=== PATIENT | male | born 1985 | race Caucasian/White ===

== ENCOUNTER 2024-01-11 15:15 | Outpatient (RCR) | payer OTHER, MEDICAID, SELFPAY ==
--- NOTE | 2023-12-07 16:51 | PT.OIE ---
Current Diagnoses Pelvic muscle wasting (12/07/23) Unspecified urinary incontinence (12/07/23) Feeling of incomplete bladder emptying (12/07/23) Visit Care Team Role Provider Type Melvin Castle MD Attending Provider Non-Staff Family Provider Primary Care Provider Referring Provider Specialty: Family Practice Address: [address] [place] [address], [id number] Email: Physical Therapy Initial Evaluation PT-OP-A Visit Information Start: 12/07/23 10:29 Freq: Status: Active Protocol: Document 12/07/23 16:15 [facility] (Rec: 12/07/23 16:15 [facility] [id number]) Out-Patient Physical Therapy Visit Information Visit Information Visit Type Initial Evaluation Visit Start Time 10:30 Visit Stop Time 11:15 Visit Number 1 Evaluation Information Evaluation Date 12/07/23 PT-OP-B Current Condition Start: 12/07/23 10:29 Freq: Status: Active Protocol: Document 12/07/23 10:30 [facility] (Rec: 12/07/23 11:17 [facility] [id number]) Current Condition History of Current Condition Onset Date 1 year ago Current Complaints urinary leakage with urgnecy History of Current Condition Baldo reports his symptoms are worse in the AM especially when he stands up out of bed to walk to the bathroom. He notes he will often leak on the way to the bathroom. last year is when it got more acute when it became a daily problem. Baldo reports he was under a lot of stress he had lost his brother and he was experiencing heart flucations and stress. After the first inital empty in the am, Baldo notes he can feel like he has trouble knowing when his bladder is full. He will experience urgency during the day but he has fewer accidents so he will get the urgency but he doesn't always get a warning ahead of time. He goes approx 1.5 hour in between voids. 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 HE has a daily bowel movement and usually goes in the am and often times in the am he feels bloated in the am and nauseated in the am. Then 2-3 hours into his day he is feeling better he mostly drinks water during the day 20 oz water bottle. HE refills 2-3 times. He has coffee occasionally. He does notice that his urine is very concentrated in the am. Guzman eating habits yougart and fresh fruit, creme of wheat, rice and meats and he tries to eat more veggies. He tried to limited his meat intake. He aims to have dinner aound 6 but at times it will be between 6-9. He aims to be in bed by 10 but it can take him a long to fall alseep. He has at times had leakage with coughing and sneezing. He is wearing incontinence underware daily and he has to change at least once per day and sometimes 2-3 times per day. Treatment Goals Patient/Caregiver Goals Pts goals include decreasing urinary leakage and urgency PT-OP-C Subjective Start: 12/07/23 10:29 Freq: Status: Active Protocol: Document 12/07/23 10:30 [facility] (Rec: 12/12/23 16:30 [facility] [id number]) OP-PT Subjective Patient Comments Patient Comments Pt reports he cant get out of bed without worrying about urinary leakage Patient Questionnaires Pelvic Pain and Urgency/Frequency Patient Symptom Scale Pelvic Pain Score 8 PT-OP-F Manual Assessment Start: 12/07/23 10:29 Freq: Status: Active Protocol: Document 12/07/23 10:30 [facility] (Rec: 12/12/23 16:30 [facility] [id number]) Manual Assessments Soft Tissue Assessment Soft Tissue Mobility Assessment tightness of the suprapubic fascia PT-OP-I Pelvic Floor Start: 12/07/23 10:29 Freq: Status: Active Protocol: Document 12/07/23 10:30 [facility] (Rec: 12/12/23 16:30 [facility] [id number]) Pelvic Floor Assessment Urine Pelvic Floor Surgery No Urinary Symptoms Dysuria,Urge Sensation, Hesitancy,Incomplete Emptying Other Urinary Symptoms incomplete bladder emptying urinary incontinence worse in the am urinary urgency Leakage Size Medium Leakage Cause Urge Leaks Per Day 4 Nocturia 2 Urine Pad Type Depends Contraction Ability Voluntary Contraction Weak Voluntary Relaxation Weak Muscle Endurance (Seconds) 3 Comments Pelvic Floor Comments poor endurance holds of the pelvic floor. PT-OP-Q Treatments Start: 12/07/23 10:29 Freq: Status: Active Protocol: Document 12/07/23 10:30 [facility] (Rec: 12/07/23 16:16 [facility] [id number]) Therapeutic Exercises Supine Exercises pelvic floor long holds Reps/Minutes 5 sec hold and 10 second relaxation x 10 reps Self-Care/Home Management Treatment Education Patient Education Home Exercise Program Other Education urge deference technique and bladder retraining PT-OP-T Assessment and Plan Start: 12/07/23 10:29 Freq: Status: Active Protocol: Document 12/07/23 10:30 [facility] (Rec: 12/12/23 16:30 [facility] [id number]) Physical Therapy Assessment Rehab Potential Rehabilitation Potential Excellent Evaluation Complexity Number of Personal Factors/Comorbidities 0 Number of Body Systems Impaired 1-2 Clinical Presentation at Evaluation Stable Impairments Impairments Activity Tolerance,Soft Tissue Mobility,Strength Other Impairments urinary urgency and leakage Goals 3 Impairment nocturia 2 times per night [place] Goal (LTG) Baldo is able to decrease night time voiding to 1xm per night or less LTG Duration 12 weeks 2 Impairment Urinary urge incontinence Short Term Goal (STG) Baldo is able to perform the urge deference technique in the am prior to getting out of bed and he is able to make it to the bathroom without leakage STG Duration 4 weeks Senior Care Goal (LTG) Baldo reports a overall reducation in urinary urge incontinence LTG Duration 12 weeks 1 Impairment decreased endurance of the pelvic floor Short Term Goal (STG) Baldo is able to sustain a pelvic floor contraction in supine x 10 seconds STG Duration 4 weeks Senior Care Goal (LTG) Baldo is able to sustain a pelvic floor contraction in standing x 5-10 seconds LTG Duration 12 weeks Assessment Summary Assessment Baldo is a 38 year old transgender male who is referred for urinary incontinence and incomplete bladder emptying. Baldo describes incontinence as being worse in the am and is leaking 3-4 times per day wetting through the underware. He is wearing a diaper daily for protection. Leakage is increased with changing positions such as sit -stand and is worse first thing in the am when getting out of bed. With evaluation today Baldo was educated on bladder irritants as well as education on bladder irritation with dehydration. He is often feeling bloated in the am and seems to have fewer leakage accidents after his bowel movement. He was educated on adequate hydration for improved bowel movements as well as to decrease urgency of the bladder. Baldo was educated on the urge deference technique today to try prior to getting out of bed in the am. He has difficulty sustaining a pelvic floor contraction for more than a few seconds in supine. He would benefit from pelvic floor endurance training utilizing EMG biofeedback. Baldo is a good candidate for PT. Physical Therapy Plan Frequency and Duration Frequency of Treatment 1x/Week Duration of treatment (weeks) 12 Plan of Care Start Date 12/07/23 Plan of Care End Date 02/29/24 Therapeutic Interventions Therapeutic Interventions Home Exercise Program, Neuromuscular Re-education, Patient/Caregiver Education, Self-Care/Home Management, Therapeutic Exercises Modalities Biofeedback Next Visit Focus/Plan Next Note Type Treatment Note Next Visit Plan Begin EMG biofeedback for pelvic floor endurance training next visit
--- NOTE | 2023-12-21 16:36 | PT.OTN ---
Current Diagnoses Pelvic muscle wasting (12/21/23) Unspecified urinary incontinence (12/21/23) Feeling of incomplete bladder emptying (12/21/23) Physical Therapy Treatment Note PT-OP-A Visit Information Start: 12/07/23 10:29 Freq: Status: Active Protocol: Document 12/21/23 15:47 [facility] (Rec: 12/21/23 16:36 [facility] [id number]) Out-Patient Physical Therapy Visit Information Visit Information Visit Type Treatment Note Visit Start Time 13:35 Visit Stop Time 14:15 Visit Number 2 Evaluation Information Evaluation Date 12/07/23 PT-OP-B Current Condition Start: 12/07/23 10:29 Freq: Status: Active Protocol: Document 12/07/23 10:30 [facility] (Rec: 12/07/23 11:17 [facility] [id number]) Current Condition History of Current Condition Onset Date 1 year ago Current Complaints urinary leakage with urgnecy History of Current Condition Roberto reports his symptoms are worse in the AM especially when he stands up out of bed to walk to the bathroom. He notes he will often leak on the way to the bathroom. last year is when it got more acute when it became a daily problem. Roberto reports he was under a lot of stress he had lost his brother and he was experiencing heart flucations and stress. After the first inital empty in the am, Roberto notes he can feel like he has trouble knowing when his bladder is full. He will experience urgency during the day but he has fewer accidents so he will get the urgency but he doesn't always get a warning ahead of time. He goes approx 1.5 hour in between voids. 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 HE has a daily bowel movement and usually goes in the am and often times in the am he feels bloated in the am and nauseated in the am. Then 2-3 hours into his day he is feeling better he mostly drinks water during the day 20 oz water bottle. HE refills 2-3 times. He has coffee occasionally. He does notice that his urine is very concentrated in the am. Megan eating habits yougart and fresh fruit, creme of wheat, rice and meats and he tries to eat more veggies. He tried to limited his meat intake. He aims to have dinner aound 6 but at times it will be between 6-9. He aims to be in bed by 10 but it can take him a long to fall alseep. He has at times had leakage with coughing and sneezing. He is wearing incontinence underware daily and he has to change at least once per day and sometimes 2-3 times per day. Treatment Goals Patient/Caregiver Goals Pts goals include decreasing urinary leakage and urgency PT-OP-C Subjective Start: 12/07/23 10:29 Freq: Status: Active Protocol: Document 12/21/23 15:47 [facility] (Rec: 12/21/23 16:36 [facility] [id number]) OP-PT Subjective Patient Comments Patient Comments pt notes the quick contraction have helped with urgency, He does note that urgency was worse prior to a bowel movement. HE notes he average is 1.5 hours during the day but can sleep throught the night Patient Reported Progress Improving PT-OP-F Manual Assessment Start: 12/07/23 10:29 Freq: Status: Active Protocol: Document 12/07/23 10:30 [facility] (Rec: 12/12/23 16:30 [facility] [id number]) Manual Assessments Soft Tissue Assessment Soft Tissue Mobility Assessment tightness of the suprapubic fascia PT-OP-I Pelvic Floor Start: 12/07/23 10:29 Freq: Status: Active Protocol: Document 12/07/23 10:30 [facility] (Rec: 12/12/23 16:30 [facility] [id number]) Pelvic Floor Assessment Urine Pelvic Floor Surgery No Urinary Symptoms Dysuria,Urge Sensation, Hesitancy,Incomplete Emptying Other Urinary Symptoms incomplete bladder emptying urinary incontinence worse in the am urinary urgency Leakage Size Medium Leakage Cause Urge Leaks Per Day 4 Nocturia 2 Urine Pad Type Depends Contraction Ability Voluntary Contraction Weak Voluntary Relaxation Weak Muscle Endurance (Seconds) 3 Comments Pelvic Floor Comments poor endurance holds of the pelvic floor. PT-OP-Q Treatments Start: 12/07/23 10:29 Freq: Status: Active Protocol: Document 12/21/23 15:47 [facility] (Rec: 12/21/23 16:36 [facility] [id number]) Therapeutic Exercises Supine Exercises hip ER with theraband Reps/Minutes x 20 reps level 2 TB ball squeeze Reps/Minutes x 10 resting tone Supine Exercise Name 3-6 pelvic floor long holds Supine Exercise Name elevated resting tone Comments 39.7 and max of 70.4 Self-Care/Home Management Treatment Education Patient Education Home Exercise Program Other Education review of bladder diary, HEP was updated and given to Roberto with pictures PT-OP-T Assessment and Plan Start: 12/07/23 10:29 Freq: Status: Active Protocol: Document 12/21/23 15:47 [facility] (Rec: 12/21/23 16:36 [facility] [id number]) Physical Therapy Assessment Assessment Summary Assessment We began working with EMG biofeedback today for pelvic floor assessment. Resting tone was elevated and Roberto has difficulty relaxing the pelvic floor. He does present with strong contraction of the pelvic floor. I worked today on contract relax, adductor contract relax and hip ER with theraband. Roberto was able to reach baseline a few times with relaxation after this. He is doing well with urge deference technique and notes that he has been able to make it to the bathroom this past week using this technique Physical Therapy Plan Frequency and Duration Frequency of Treatment 1x/Week Duration of treatment (weeks) 12 Plan of Care Start Date 12/07/23 Plan of Care End Date 02/29/24 Therapeutic Interventions Therapeutic Interventions Home Exercise Program, Neuromuscular Re-education, Patient/Caregiver Education, Self-Care/Home Management, Therapeutic Exercises Modalities Biofeedback Next Visit Focus/Plan Next Note Type Treatment Note Next Visit Plan assess how Roberto did with his exercises given today and begin MFR surrounding the bladder next visit
--- NOTE | 2023-12-28 16:13 | PT.OTN ---
Current Diagnoses Pelvic muscle wasting (12/28/23) Unspecified urinary incontinence (12/28/23) Feeling of incomplete bladder emptying (12/28/23) Physical Therapy Treatment Note PT-OP-A Visit Information Start: 12/07/23 10:29 Freq: Status: Active Protocol: Document 12/28/23 15:21 [facility] (Rec: 12/28/23 16:13 [facility] [id number]) Out-Patient Physical Therapy Visit Information Visit Information Visit Type Treatment Note PT-OP-B Current Condition Start: 12/07/23 10:29 Freq: Status: Active Protocol: Document 12/07/23 10:30 [facility] (Rec: 12/07/23 11:17 [facility] [id number]) Current Condition History of Current Condition Onset Date 1 year ago Current Complaints urinary leakage with urgnecy History of Current Condition Baldo reports his symptoms are worse in the AM especially when he stands up out of bed to walk to the bathroom. He notes he will often leak on the way to the bathroom. last year is when it got more acute when it became a daily problem. Baldo reports he was under a lot of stress he had lost his brother and he was experiencing heart flucations and stress. After the first inital empty in the am, Baldo notes he can feel like he has trouble knowing when his bladder is full. He will experience urgency during the day but he has fewer accidents so he will get the urgency but he doesn't always get a warning ahead of time. He goes approx 1.5 hour in between voids. 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 HE has a daily bowel movement and usually goes in the am and often times in the am he feels bloated in the am and nauseated in the am. Then 2-3 hours into his day he is feeling better he mostly drinks water during the day 20 oz water bottle. HE refills 2-3 times. He has coffee occasionally. He does notice that his urine is very concentrated in the am. Megan eating habits yougart and fresh fruit, creme of wheat, rice and meats and he tries to eat more veggies. He tried to limited his meat intake. He aims to have dinner aound 6 but at times it will be between 6-9. He aims to be in bed by 10 but it can take him a long to fall alseep. He has at times had leakage with coughing and sneezing. He is wearing incontinence underware daily and he has to change at least once per day and sometimes 2-3 times per day. Treatment Goals Patient/Caregiver Goals Pts goals include decreasing urinary leakage and urgency PT-OP-C Subjective Start: 12/07/23 10:29 Freq: Status: Active Protocol: Document 12/28/23 15:21 [facility] (Rec: 12/28/23 16:13 [facility] [id number]) OP-PT Subjective Patient Comments Patient Comments pt notes he is feeling good and he has had a lot of times where he made it no problem. PT-OP-F Manual Assessment Start: 12/07/23 10:29 Freq: Status: Active Protocol: Document 12/07/23 10:30 [facility] (Rec: 12/12/23 16:30 [facility] [id number]) Manual Assessments Soft Tissue Assessment Soft Tissue Mobility Assessment tightness of the suprapubic fascia PT-OP-I Pelvic Floor Start: 12/07/23 10:29 Freq: Status: Active Protocol: Document 12/07/23 10:30 [facility] (Rec: 12/12/23 16:30 [facility] [id number]) Pelvic Floor Assessment Urine Pelvic Floor Surgery No Urinary Symptoms Dysuria,Urge Sensation, Hesitancy,Incomplete Emptying Other Urinary Symptoms incomplete bladder emptying urinary incontinence worse in the am urinary urgency Leakage Size Medium Leakage Cause Urge Leaks Per Day 4 Nocturia 2 Urine Pad Type Depends Contraction Ability Voluntary Contraction Weak Voluntary Relaxation Weak Muscle Endurance (Seconds) 3 Comments Pelvic Floor Comments poor endurance holds of the pelvic floor. PT-OP-Q Treatments Start: 12/07/23 10:29 Freq: Status: Active Protocol: Document 12/28/23 15:21 [facility] (Rec: 12/28/23 16:13 [facility] [id number]) Therapeutic Exercises Supine Exercises modified squat stretch Reps/Minutes hold 1-2 min piriformis stretch Reps/Minutes hold 1-2 min Comments right side tightner hip ER with theraband Reps/Minutes x 20 reps level 2 TB resting tone Supine Exercise Name 3-4 uv Comments pt went to 0 when thinking about starting the flow of urine pelvic floor long holds Supine Exercise Name able to relax to baseline Comments max of 40 average 22 uv Manual Therapy Treatment Soft Tissue Mobilization fascial release of the suprapubic fascia Body Location suprapubic fascia Mobilization Type Myofascial Release Body Position Supine Comments worked on releasing on either side of the bladder and Baldo was instructed in self fascial release for home PT-OP-T Assessment and Plan Start: 12/07/23 10:29 Freq: Status: Active Protocol: Document 12/28/23 15:21 [facility] (Rec: 12/28/23 16:13 [facility] [id number]) Physical Therapy Assessment Assessment Summary Assessment Baldo was able to fully relax his pelvic floor to resting with EMGbiofeedback today. This was after both pelvic stretches as well as MFR techniques. He is showing good progress Physical Therapy Plan Next Visit Focus/Plan Next Note Type Treatment Note Next Visit Plan review new stretches and continue with Plan of care
--- NOTE | 2024-01-04 16:12 | PT.OTN ---
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) Unspecified urinary incontinence (01/04/24) Feeling of incomplete bladder emptying (01/04/24) Physical Therapy Treatment Note PT-OP-A Visit Information Start: 12/07/23 10:29 Freq: Status: Active Protocol: Document 01/04/24 15:19 [facility] (Rec: 01/04/24 16:11 [facility] [id number]) Out-Patient Physical Therapy Visit Information Visit Information Visit Type Treatment Note Visit Start Time 15:15 Visit Stop Time 16:00 Visit Number 4 PT-OP-B Current Condition Start: 12/07/23 10:29 Freq: Status: Active Protocol: Document 12/07/23 10:30 [facility] (Rec: 12/07/23 11:17 [facility] [id number]) Current Condition History of Current Condition Onset Date 1 year ago Current Complaints urinary leakage with urgnecy History of Current Condition Cristiano reports his symptoms are worse in the AM especially when he stands up out of bed to walk to the bathroom. He notes he will often leak on the way to the bathroom. last year is when it got more acute when it became a daily problem. Cristiano reports he was under a lot of stress he had lost his brother and he was experiencing heart flucations and stress. After the first inital empty in the am, Cristiano notes he can feel like he has trouble knowing when his bladder is full. He will experience urgency during the day but he has fewer accidents so he will get the urgency but he doesn't always get a warning ahead of time. He goes approx 1.5 hour in between voids. 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 HE has a daily bowel movement and usually goes in the am and often times in the am he feels bloated in the am and nauseated in the am. Then 2-3 hours into his day he is feeling better he mostly drinks water during the day 20 oz water bottle. HE refills 2-3 times. He has coffee occasionally. He does notice that his urine is very concentrated in the am. Megan eating habits yougart and fresh fruit, creme of wheat, rice and meats and he tries to eat more veggies. He tried to limited his meat intake. He aims to have dinner aound 6 but at times it will be between 6-9. He aims to be in bed by 10 but it can take him a long to fall alseep. He has at times had leakage with coughing and sneezing. He is wearing incontinence underware daily and he has to change at least once per day and sometimes 2-3 times per day. Treatment Goals Patient/Caregiver Goals Pts goals include decreasing urinary leakage and urgency PT-OP-C Subjective Start: 12/07/23 10:29 Freq: Status: Active Protocol: Document 01/04/24 15:19 [facility] (Rec: 01/04/24 16:11 [facility] [id number]) OP-PT Subjective Patient Comments Patient Comments the past two days cristiano has not had to think about, he is thinking about relaxing and the stretches have really helped. PT-OP-F Manual Assessment Start: 12/07/23 10:29 Freq: Status: Active Protocol: Document 12/07/23 10:30 [facility] (Rec: 12/12/23 16:30 [facility] [id number]) Manual Assessments Soft Tissue Assessment Soft Tissue Mobility Assessment tightness of the suprapubic fascia PT-OP-I Pelvic Floor Start: 12/07/23 10:29 Freq: Status: Active Protocol: Document 12/07/23 10:30 [facility] (Rec: 12/12/23 16:30 [facility] [id number]) Pelvic Floor Assessment Urine Pelvic Floor Surgery No Urinary Symptoms Dysuria,Urge Sensation, Hesitancy,Incomplete Emptying Other Urinary Symptoms incomplete bladder emptying urinary incontinence worse in the am urinary urgency Leakage Size Medium Leakage Cause Urge Leaks Per Day 4 Nocturia 2 Urine Pad Type Depends Contraction Ability Voluntary Contraction Weak Voluntary Relaxation Weak Muscle Endurance (Seconds) 3 Comments Pelvic Floor Comments poor endurance holds of the pelvic floor. PT-OP-Q Treatments Start: 12/07/23 10:29 Freq: Status: Active Protocol: Document 01/04/24 15:19 [facility] (Rec: 01/04/24 16:11 [facility] [id number]) Therapeutic Exercises Supine Exercises templates for eccentric control and coordination Reps/Minutes x 5 min Comments worked on eccentric control and coordination resting tone Supine Exercise Name started at 0 baseline pelvic floor long holds Supine Exercise Name able to relax to baseline Reps/Minutes x 10 reps Comments 25 average and max ov 44 Manual Therapy Treatment Soft Tissue Mobilization fascial release of the suprapubic fascia Body Location suprapubic fascia Mobilization Type Myofascial Release Body Position Supine Comments worked on releasing on either side of the bladder and Cristiano was instructed in self fascial release for home PT-OP-T Assessment and Plan Start: 12/07/23 10:29 Freq: Status: Active Protocol: Document 01/04/24 15:19 [facility] (Rec: 01/04/24 16:11 [facility] [id number]) Physical Therapy Assessment Goals 3 Impairment nocturia 2 times per night Windows Systems Architect Goal (LTG) Cristiano is able to decrease night time voiding to 1xm per night or less goal met and cristiano is sleeping until 5 am now and not having to get right out of bed to void LTG Duration 12 weeks 2 Impairment Urinary urge incontinence Short Term Goal (STG) Cristiano is able to perform the urge deference technique in the am prior to getting out of bed and he is able to make it to the bathroom without leakage STG Duration 4 weeks Group Home Goal (LTG) Cristiano reports a overall reducation in urinary urge incontinence LTG Duration 12 weeks 1 Impairment decreased endurance of the pelvic floor Short Term Goal (STG) Cristiano is able to sustain a pelvic floor contraction in supine x 10 seconds STG Duration 4 weeks Windows Systems Architect Goal (LTG) Cristiano is able to sustain a pelvic floor contraction in standing x 5-10 seconds LTG Duration 12 weeks Assessment Summary Assessment Cristiano is make really good progress with PT and symptoms of urgency and urge incontinence are much decreased. He has one visit left in PT and will then be discharged to a [facility] Physical Therapy Plan Frequency and Duration Frequency of Treatment 1x/Week Duration of treatment (weeks) 12 Plan of Care Start Date 12/07/23 Plan of Care End Date 02/29/24 Therapeutic Interventions Therapeutic Interventions Home Exercise Program, Neuromuscular Re-education, Patient/Caregiver Education, Self-Care/Home Management, Therapeutic Exercises Modalities Biofeedback Next Visit Focus/Plan Next Note Type Treatment Note Next Visit Plan review all exercises next visit as this will be Cristiano's last visit
--- NOTE | 2024-01-11 16:16 | PT.OTN ---
Current Diagnoses Pelvic muscle wasting (01/11/24) Unspecified urinary incontinence (01/11/24) Feeling of incomplete bladder emptying (01/11/24) Physical Therapy Treatment Note PT-OP-A Visit Information Start: 12/07/23 10:29 Freq: Status: Active Protocol: Document 01/11/24 16:14 [facility] (Rec: 01/11/24 16:16 [facility] [id number]) Out-Patient Physical Therapy Visit Information Visit Information Visit Type Treatment Note Visit Start Time 15:20 Visit Stop Time 16:00 Visit Number 5 PT-OP-B Current Condition Start: 12/07/23 10:29 Freq: Status: Active Protocol: Document 12/07/23 10:30 [facility] (Rec: 12/07/23 11:17 [facility] [id number]) Current Condition History of Current Condition Onset Date 1 year ago Current Complaints urinary leakage with urgnecy History of Current Condition Cristiano reports his symptoms are worse in the AM especially when he stands up out of bed to walk to the bathroom. He notes he will often leak on the way to the bathroom. last year is when it got more acute when it became a daily problem. Cristiano reports he was under a lot of stress he had lost his brother and he was experiencing heart flucations and stress. After the first inital empty in the am, Cristiano notes he can feel like he has trouble knowing when his bladder is full. He will experience urgency during the day but he has fewer accidents so he will get the urgency but he doesn't always get a warning ahead of time. He goes approx 1.5 hour in between voids. 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 HE has a daily bowel movement and usually goes in the am and often times in the am he feels bloated in the am and nauseated in the am. Then 2-3 hours into his day he is feeling better he mostly drinks water during the day 20 oz water bottle. HE refills 2-3 times. He has coffee occasionally. He does notice that his urine is very concentrated in the am. Megan eating habits yougart and fresh fruit, creme of wheat, rice and meats and he tries to eat more veggies. He tried to limited his meat intake. He aims to have dinner aound 6 but at times it will be between 6-9. He aims to be in bed by 10 but it can take him a long to fall alseep. He has at times had leakage with coughing and sneezing. He is wearing incontinence underware daily and he has to change at least once per day and sometimes 2-3 times per day. Treatment Goals Patient/Caregiver Goals Pts goals include decreasing urinary leakage and urgency PT-OP-C Subjective Start: 12/07/23 10:29 Freq: Status: Active Protocol: Document 01/11/24 16:14 [facility] (Rec: 01/11/24 16:16 [facility] [id number]) OP-PT Subjective Patient Comments Patient Comments Cristiano reports he is doing good with his home program and only had one leak in the am when walking PT-OP-F Manual Assessment Start: 12/07/23 10:29 Freq: Status: Active Protocol: Document 12/07/23 10:30 [facility] (Rec: 12/12/23 16:30 [facility] [id number]) Manual Assessments Soft Tissue Assessment Soft Tissue Mobility Assessment tightness of the suprapubic fascia PT-OP-I Pelvic Floor Start: 12/07/23 10:29 Freq: Status: Active Protocol: Document 12/07/23 10:30 [facility] (Rec: 12/12/23 16:30 [facility] [id number]) Pelvic Floor Assessment Urine Pelvic Floor Surgery No Urinary Symptoms Dysuria,Urge Sensation, Hesitancy,Incomplete Emptying Other Urinary Symptoms incomplete bladder emptying urinary incontinence worse in the am urinary urgency Leakage Size Medium Leakage Cause Urge Leaks Per Day 4 Nocturia 2 Urine Pad Type Depends Contraction Ability Voluntary Contraction Weak Voluntary Relaxation Weak Muscle Endurance (Seconds) 3 Comments Pelvic Floor Comments poor endurance holds of the pelvic floor. PT-OP-Q Treatments Start: 12/07/23 10:29 Freq: Status: Active Protocol: Document 01/11/24 15:25 [facility] (Rec: 01/11/24 16:13 [facility] [id number]) Therapeutic Exercises Supine Exercises templates for eccentric control and coordination Reps/Minutes x 5 min Comments worked on eccentric control and coordination modified squat stretch Reps/Minutes hold 1-2 min piriformis stretch Reps/Minutes hold 1-2 min Comments right side tightner hip ER with theraband Reps/Minutes x 20 reps level 2 TB ball squeeze Reps/Minutes x 10 Comments max of 35 uv resting tone Supine Exercise Name started at 0 baseline pelvic floor long holds Supine Exercise Name able to relax to baseline Reps/Minutes x 10 reps Comments 24.5 and max of 40 uv Sidelying Exercises clam shells Reps/Minutes 2x 10 reps PT-OP-T Assessment and Plan Start: 12/07/23 10:29 Freq: Status: Active Protocol: Document 01/11/24 15:25 [facility] (Rec: 01/11/24 16:13 [facility] [id number]) Physical Therapy Assessment Goals 3 Impairment nocturia 2 times per night Biomedical Manager Goal (LTG) Cristiano is able to decrease night time voiding to 1xm per night or less goal met and cristiano is sleeping until 5 am now and not having to get right out of bed to void LTG Duration 12 weeks 2 Impairment Urinary urge incontinence Short Term Goal (STG) Cristiano is able to perform the urge deference technique in the am prior to getting out of bed and he is able to make it to the bathroom without leakage goal met STG Duration 4 weeks Biomedical Manager Goal (LTG) Cristiano reports a overall reeducation in urinary urge incontinence goal met LTG Duration 12 weeks 1 Impairment decreased endurance of the pelvic floor Short Term Goal (STG) Cristiano is able to sustain a pelvic floor contraction in supine x 10 seconds goal met STG Duration 4 weeks Biomedical Manager Goal (LTG) Cristiano is able to sustain a pelvic floor contraction in standing x 5-10 seconds pt is working on pelvic floor contraction prior to standing in the am for support to the bladder and to stop urgency LTG Duration 12 weeks Progress Towards Goals Progress Towards Goals Goals Met Assessment Summary Assessment cristiano has progressed well with PT and he is feeling that he has much better control of his bladder. Overall his symptoms of urinary urgency and leakage are much decreased . Physical Therapy Plan Discharge Physical Therapy Discharge Reasons Goals Met Discharge Comments Cristiano is independent with his HEP and will be discharged at this time to a [facility]
== END 2024-01-12 15:00 | disposition home or self-care (01) ==
LOC: PHYS 15:15
PROVIDERS: Family Provider Family Medicine; PCP Family Medicine; Referring Provider Family Medicine; Visit Provider Family Medicine
DX: R39.14 Feeling of incomplete bladder emptying (principal); R32 Unspecified urinary incontinence
CPT/HCPCS: 97110; 97140; 97161; 97535